=== PATIENT | male | born 1950 | race Caucasian/White ===

== ENCOUNTER 2017-09-11 13:57 | Emergency (ER) | payer MEDICARE ==
[~2017-09-11] VITALS: Ht 190.5 cm; Wt 95.5 kg
[~2017-09-11 13:57] MED LIST: CYCL-259 PO; CYCL5TAB PO; DULO20CA45 PO; LISI-170 PO; OMEP40CA6 PO; OXYC1TAB7 PO; SIMV5TAB5 PO; TRAM50TA2 PO
[2017-09-11] MEDS ORDERED: DEXAMETHASONE 4 MG/ML, 1ML IVPush ONE (14:30)
[2017-09-11] MEDS ORDERED: ONDANSETRON ODT 4 MG PO ONE (14:30)
[2017-09-11] MEDS ORDERED: MORPHINE SULFATE 4 MG/ML, 1ML IVPush ONE (14:30)
[2017-09-11] MEDS ORDERED: DEXAMETHASONE 4 MG/ML, 5ML ONE (14:39)
[2017-09-11] MEDS ORDERED: ONDANSETRON ODT 4 MG ONE (14:39)
[2017-09-11] MEDS ORDERED: MORPHINE SULFATE 4 MG/ML, 1ML ONE (14:39)
[2017-09-11 16:32] VITALS: BP 131/60
== END 2017-09-11 16:35 | disposition home or self-care (01) ==
LOC: ED 16:29
DX: M51.36 Other intervertebral disc degeneration, lumbar region (principal); G89.29 Other chronic pain; M54.5 Low back pain
CPT/HCPCS: 96374; 96375; 99284; J1100; Q0162

== ENCOUNTER 2018-02-23 06:13 | Emergency (ER) | payer OTHER ==
[~2018-02-23] VITALS: Ht 188 cm; Wt 90.0 kg
[2018-02-23] MEDS ORDERED: LORazepam 1MG TABLET PO ONE (06:30)
[2018-02-23] MEDS ORDERED: ATOR40TA78 PO (06:31)
[2018-02-23] MEDS ORDERED: LISI-170 PO (06:31)
[2018-02-23] MEDS ORDERED: ACET325T14 PO (06:32)
[2018-02-23] MEDS ORDERED: TRAM50TA2 PO (06:33)
[2018-02-23] MEDS ORDERED: LORazepam 1MG TABLET ONE (06:37)
[2018-02-23 06:45] LABS: BASOPHILS # (AUTO) 0.02 x10^3/uL (0-0.1); BASOPHILS % (AUTO) 0 % (0-1); EOSINOPHILS # (AUTO) 0.08 x10^3/uL (0-0.4); EOSINOPHILS % (AUTO) 1 % (1-7); LYMPHOCYTES # (AUTO) 1.04 x10^3/uL (1-3.4); LYMPHOCYTES % (AUTO) 14 % (22-44); MD NO; MEAN CORPUSCULAR HEMOGLOBIN 29.2 pg (27.5-34.5); MEAN CORPUSCULAR HGB CONC 33.4 g/dL (33.2-36.2); MEAN CORPUSCULAR VOLUME 87.4 fL (81-97); MEAN PLATELET VOLUME 7.9 fL (7.4-10.4); MONOCYTES # (AUTO) 0.54 x10^3/uL (0.2-0.8); MONOCYTES % (AUTO) 7 % (2-9); NEUTROPHILS # (AUTO) 5.67 x10^3/uL (1.8-6.8); NEUTROPHILS % (AUTO) 77 % (42-75); PLATELET COUNT 340 x10^3/uL (130-400); RED BLOOD COUNT 4.71 x10^6/uL (4.38-5.82); RED CELL DISTRIBUTION WIDTH 14.6 % (9.4-14.8)
[2018-02-23 06:56] LABS: ALBUMIN 3.6 g/dL (3.4-5.0); ANION GAP 10 mmol/L (5-15); CALCIUM 9.1 mg/dL (8.5-10.1); CHLORIDE 113 mmol/L (98-107); CREATININE 1.65 mg/dL (0.7-1.3)
[2018-02-23 07:00] LABS: TROPONIN I < 0.015 ng/mL (0.000-0.045)
[2018-02-23] MEDS ORDERED: ONDANSETRON ODT 4 MG PO ONE (08:00)
[2018-02-23] MEDS ORDERED: ONDANSETRON ODT 4 MG ONE (08:05)
[2018-02-23 09:10] VITALS: BP 123/67
== END 2018-02-23 09:12 | disposition home or self-care (01) ==
LOC: ED 08:10
DX: R42 Dizziness and giddiness (principal); R06.4 Hyperventilation; F41.1 Generalized anxiety disorder; I10 Essential (primary) hypertension; E78.5 Hyperlipidemia, unspecified; K21.9 Gastro-esophageal reflux disease without esophagitis; G89.29 Other chronic pain; Z87.891 Personal history of nicotine dependence
CPT/HCPCS: 36415; 71045; 80048; 82040; 84484; 85025; 93005; 99284; Q0162

== ENCOUNTER 2020-08-05 09:53 | Emergency (ER) | payer MEDICARE, OTHER ==
[~2020-08-05] VITALS: Ht 188 cm; Wt 85.9 kg
[~2020-08-05 09:53] MED LIST changes: +ACET325T14 PO; +ATOR40TA78 PO; -CYCL-259 PO; +CYCL10TA2 PO; +OMEP40CA42 PO; -OMEP40CA6 PO; +SIMV5TAB14 PO; -SIMV5TAB5 PO
[2020-08-05] MEDS ORDERED: FAMOTIDINE 20 MG TABLET PO ONE (10:30)
[2020-08-05] MEDS ORDERED: DIPHENHYDRAMINE 50 MG/ML, 1ML IM ONE (10:30)
[2020-08-05] MEDS ORDERED: FAMOTIDINE 20 MG TABLET ONE (10:45)
[2020-08-05] MEDS ORDERED: DIPHENHYDRAMINE 50 MG/ML, 1ML ONE (10:46)
[2020-08-05 10:53] LABS: BASOPHILS % (AUTO) 1 % (0-1); EOSINOPHILS % (AUTO) 17 % (1-7); LYMPHOCYTES % (AUTO) 10 % (22-44); MEAN PLATELET VOLUME 7.2 fL (7.4-10.4); MONOCYTES % (AUTO) 12 % (2-9); NEUTROPHILS % (AUTO) 62 % (42-75); PLATELET COUNT 382 x10^3/uL (130-400); RED BLOOD COUNT 4.19 x10^6/uL (4.38-5.82)
[2020-08-05 11:03] LABS: ALBUMIN 3.4 g/dL (3.4-5.0); ANION GAP 5 mmol/L (5-15); CALCIUM 9.3 mg/dL (8.5-10.1); CHLORIDE 107 mmol/L (98-107)
[2020-08-05 11:07] LABS: ALANINE AMINOTRANSFERASE 24 U/L (12-78); ALKALINE PHOSPHATASE 88 U/L (45-117); BILIRUBIN,TOTAL 0.4 mg/dL (0.2-1.0); CREATININE 1.41 mg/dL (0.7-1.3)
[2020-08-05 11:12] LABS: MD NO
[2020-08-05 12:22] VITALS: BP 121/81
== END 2020-08-05 12:24 | disposition home or self-care (01) ==
LOC: ED 10:25
DX: L20.9 Atopic dermatitis, unspecified (principal); L20.84 Intrinsic (allergic) eczema; I10 Essential (primary) hypertension; E78.5 Hyperlipidemia, unspecified; K21.9 Gastro-esophageal reflux disease without esophagitis
CPT/HCPCS: 36415; 80053; 85025; 96372; 99283; J1200; J7512

== ENCOUNTER 2020-10-23 05:21 | Inpatient (IN) | payer OTHER ==
[~2020-10-23] VITALS: Ht 188 cm; Wt 82.8 kg
[~2020-10-23 05:21] MED LIST changes: -OMEP40CA42 PO; +OMEP40CA8 PO
[2020-10-23] MEDS ORDERED: TRIAMCINOLONE CRM 0.1%, 15GM TP ONE (06:00)
[2020-10-23] MEDS ORDERED: VANCOMYCIN PER PHARMACY MC PRN (06:00)
[2020-10-23] MEDS ORDERED: AMPICILLIN/SULBACTAM 3 GM in SODIUM CHLORIDE 0.9% 100 ML IV ONE (06:00)
[2020-10-23] MEDS ORDERED: VANCOMYCIN 2,100 MG in SODIUM CHLORIDE 0.9% 500 ML IV ONE (06:00)
[2020-10-23] MEDS ORDERED: DIPHENHYDRAMINE 50 MG/ML, 1ML IVPush ONE (06:00)
[2020-10-23] MEDS ORDERED: DIPHENHYDRAMINE 50 MG/ML, 1ML ONE (06:10)
[2020-10-23] MEDS ORDERED: HYDROcodone/APAP 5/325 TABLET ONE (06:12)
[2020-10-23 06:24] LABS: BASOPHILS % (AUTO) 0 % (0-1); EOSINOPHILS % (AUTO) 9 % (1-7); LYMPHOCYTES % (AUTO) 4 % (22-44); MEAN CORPUSCULAR HEMOGLOBIN 28.5 pg (27.5-34.5); MEAN CORPUSCULAR HGB CONC 33.3 g/dL (33.2-36.2); MEAN PLATELET VOLUME 7.2 fL (7.4-10.4); MONOCYTES % (AUTO) 7 % (2-9); NEUTROPHILS % (AUTO) 80 % (42-75); PLATELET COUNT 579 x10^3/uL (130-400); RED BLOOD COUNT 4.76 x10^6/uL (4.38-5.82); RED CELL DISTRIBUTION WIDTH 15.2 % (9.4-14.8)
[2020-10-23] MEDS ORDERED: HYDROcodone/APAP 5/325 TABLET PO ONE (06:30)
[2020-10-23 06:34] LABS: ALANINE AMINOTRANSFERASE 26 U/L (12-78); ALBUMIN 2.9 g/dL (3.4-5.0); ANION GAP 9 mmol/L (5-15); CALCIUM 8.5 mg/dL (8.5-10.1); CHLORIDE 107 mmol/L (98-107); CREATININE 1.52 mg/dL (0.7-1.3)
[2020-10-23 06:36] LABS: ALKALINE PHOSPHATASE 115 U/L (45-117); BILIRUBIN,TOTAL 0.3 mg/dL (0.2-1.0); TOTAL PROTEIN 6.9 g/dL (6.4-8.2)
--- NOTE | 2020-10-23 06:42 | NUR ---
Note undone in EDM - 10/23/20 at 0642 by VIVIANA Pt brought in by EMS from home due to worsening skin infection/irriation, itchiness, hives, burning sensation all throughout body. States feels like skin is on fire. Was seen at [facility] x2 weeks ago and was dx w/ an unspecified skin infection. Was d/c on Benadryl and an unknown ABX. Pt alert and orientedx4, GCS 15, pleasant. Denies sob. Pt visibly uncomfortably. Diffuse Utricaria and hives throughout skin. Pt endorses bilateral LE edema/weeping that has been acute on chronic x6 months. Denies hx of CHF, [place], CVA, or DM.
--- NOTE | 2020-10-23 06:42 | NUR ---
Pt brought in by EMS from home due to worsening skin infection/irriation, itchiness, hives, burning sensation all throughout body. States feels like skin is on fire. Was seen at [facility] x[facility] weeks ago and was dx w/ an unspecified skin infection. Was d/c on Benadryl and an unknown ABX. Pt alert and orientedx4, GCS 15, pleasant. Denies sob. Pt visibly uncomfortably. Diffuse Utricaria and hives throughout skin. Pt endorses bilateral LE edema/weeping that has been acute on chronic x6 months. Denies hx of CHF, ID, CVA, or DM.
--- NOTE | 2020-10-23 06:47 | NUR ---
Report given to Bailee Lyn no further questions at this time.
--- NOTE | 2020-10-23 07:03 | NUR ---
Pt drowsy, sleeping intermittently. "Whaterver you gave me, starting to work, better than when I first got here, that's for sure."
[2020-10-23 08:15] VITALS: BP 153/76
[2020-10-23] MEDS ORDERED: ACETAMINOPHEN 325 MG TABLET PO PRN (09:00)
[2020-10-23] MEDS ORDERED: POLYETHYLENE GLYCOL 17 GM PACKET PO PRN (09:00)
[2020-10-23] MEDS ORDERED: FAMOTIDINE 20 MG/2 ML IVPush SCH (09:00)
[2020-10-23] MEDS: LACTATED RINGERS 1,000 ML IV SCH ×3 (09:18→23:58)
[2020-10-23] MEDS: SENNA/DOCUSATE TABLET PO SCH (10:34)
[2020-10-23] MEDS: methylPREDNISolone SOD SUCC 40 MG/ML IV SCH (10:34)
[2020-10-23] MEDS: ENOXAPARIN 40 MG/0.4 ML SQ SCH (10:35)
[2020-10-23 12:53] LABS: HCT (SEDRATE) 40.8 % (39.2-51.8)
[2020-10-23] MEDS: AMPICILLIN/SULBACTAM 3 GM in SODIUM CHLORIDE 0.9% 100 ML IV SCH ×3 (13:06→23:57)
[2020-10-23] MEDS: DIPHENHYDRAMINE 50 MG/ML, 1ML IVPush SCH ×3 (13:06→23:57)
[2020-10-23 13:17] VITALS: BP 147/66
[2020-10-23] MEDS: OXYcodone/APAP 5/325MG TABLET PO PRN ×2 (14:06→21:05)
[2020-10-23 19:59] VITALS: BP 145/70
[2020-10-23] MEDS: FAMOTIDINE 20 MG TABLET PO SCH (21:01)
[2020-10-24 03:13] VITALS: BP 134/60
[2020-10-24 05:07] LABS: BASOPHILS % (AUTO) 0 % (0-1); EOSINOPHILS % (AUTO) 2 % (1-7); LYMPHOCYTES % (AUTO) 8 % (22-44); MEAN CORPUSCULAR HEMOGLOBIN 28.7 pg (27.5-34.5); MEAN CORPUSCULAR HGB CONC 33.4 g/dL (33.2-36.2); MONOCYTES % (AUTO) 10 % (2-9); NEUTROPHILS % (AUTO) 80 % (42-75); PLATELET COUNT 488 x10^3/uL (130-400); RED BLOOD COUNT 3.88 x10^6/uL (4.38-5.82); RED CELL DISTRIBUTION WIDTH 15.5 % (9.4-14.8)
[2020-10-24 05:16] LABS: CHLORIDE 114 mmol/L (98-107)
[2020-10-24 05:25] LABS: ALANINE AMINOTRANSFERASE 17 U/L (12-78); ALBUMIN 2.1 g/dL (3.4-5.0); ALKALINE PHOSPHATASE 91 U/L (45-117); ANION GAP 8 mmol/L (5-15); BILIRUBIN,TOTAL 0.4 mg/dL (0.2-1.0); CALCIUM 8.1 mg/dL (8.5-10.1); CREATININE 1.28 mg/dL (0.7-1.3); TOTAL PROTEIN 5.4 g/dL (6.4-8.2)
[2020-10-24] MEDS: AMPICILLIN/SULBACTAM 3 GM in SODIUM CHLORIDE 0.9% 100 ML IV SCH ×5 (06:40→22:23)
[2020-10-24] MEDS: DIPHENHYDRAMINE 50 MG/ML, 1ML IVPush SCH ×3 (06:41→17:58)
[2020-10-24] MEDS: OXYcodone/APAP 5/325MG TABLET PO PRN ×4 (06:41→22:24)
[2020-10-24 06:54] VITALS: BP 152/67
[2020-10-24] MEDS: MINERA CRM, 60GM TP SCH ×3 (09:30→22:25)
[2020-10-24] MEDS: FAMOTIDINE 20 MG TABLET PO SCH ×2 (09:35→22:24)
[2020-10-24] MEDS: SENNA/DOCUSATE TABLET PO SCH (09:35)
[2020-10-24] MEDS: methylPREDNISolone SOD SUCC 40 MG/ML IV SCH (09:36)
[2020-10-24] MEDS: ENOXAPARIN 40 MG/0.4 ML SQ SCH (09:36)
[2020-10-24] MEDS: LACTATED RINGERS 1,000 ML IV SCH (12:04)
[2020-10-24] MEDS ORDERED: VANCOMYCIN PER PHARMACY MC PRN (12:30)
[2020-10-24 12:50] VITALS: BP 148/76
[2020-10-24] MEDS ORDERED: PHARMACOKINETIC MONITORING MC PRN (13:00)
[2020-10-24] MEDS ORDERED: VANCOMYCIN 2,200 MG in SODIUM CHLORIDE 0.9% 500 ML IV ONE (13:00)
[2020-10-24] MEDS ORDERED: GABA-827 PO (15:39)
[2020-10-24] MEDS: GABAPENTIN 400 MG CAPSULE PO SCH ×2 (17:36→22:24)
[2020-10-24 18:55] VITALS: BP 154/70
[2020-10-25 01:03] VITALS: BP 136/86
[2020-10-25] MEDS: DIPHENHYDRAMINE 25 MG CAPSULE PO SCH ×5 (01:06→20:58)
[2020-10-25] MEDS: AMPICILLIN/SULBACTAM 3 GM in SODIUM CHLORIDE 0.9% 100 ML IV SCH ×2 (01:49→07:32)
[2020-10-25 05:24] LABS: ANION GAP 8 mmol/L (5-15); CALCIUM 7.9 mg/dL (8.5-10.1); CHLORIDE 112 mmol/L (98-107); CREATININE 1.49 mg/dL (0.7-1.3)
[2020-10-25] MEDS: DIPHENHYDRAMINE 50 MG/ML, 1ML IVPush SCH ×4 (07:00→20:58)
[2020-10-25 07:29] VITALS: BP 136/64
[2020-10-25] MEDS: SENNA/DOCUSATE TABLET PO SCH (07:33)
[2020-10-25] MEDS: ENOXAPARIN 40 MG/0.4 ML SQ SCH (07:33)
[2020-10-25] MEDS: GABAPENTIN 400 MG CAPSULE PO SCH ×2 (07:33→20:58)
[2020-10-25] MEDS: OXYcodone/APAP 5/325MG TABLET PO PRN ×4 (07:33→22:02)
[2020-10-25] MEDS: FAMOTIDINE 20 MG TABLET PO SCH ×2 (07:34→20:58)
[2020-10-25] MEDS: MINERA CRM, 60GM TP SCH ×3 (07:34→22:09)
[2020-10-25] MEDS ORDERED: VANCOMYCIN 1,800 MG in SODIUM CHLORIDE 0.9% 250 ML IV SCH (08:00)
[2020-10-25 14:45] VITALS: BP 155/72
[2020-10-25] MEDS: CEFAZOLIN PMX 2GM/50ML 50 ML IVPB SCH (17:00)
[2020-10-25 19:36] VITALS: BP 149/67
[2020-10-26] MEDS: CEFAZOLIN PMX 2GM/50ML 50 ML IVPB SCH ×3 (00:48→15:53)
[2020-10-26 02:14] VITALS: BP 155/68
[2020-10-26] MEDS: DIPHENHYDRAMINE 25 MG CAPSULE PO SCH ×4 (05:17→22:00)
[2020-10-26] MEDS: OXYcodone/APAP 5/325MG TABLET PO PRN ×3 (05:17→22:00)
[2020-10-26 06:04] LABS: BASOPHILS % (AUTO) 1 % (0-1); EOSINOPHILS % (AUTO) 5 % (1-7); LYMPHOCYTES % (AUTO) 11 % (22-44); MEAN CORPUSCULAR HEMOGLOBIN 28.3 pg (27.5-34.5); MEAN CORPUSCULAR HGB CONC 32.6 g/dL (33.2-36.2); MEAN PLATELET VOLUME 7.3 fL (7.4-10.4); MONOCYTES % (AUTO) 12 % (2-9); NEUTROPHILS % (AUTO) 72 % (42-75); PLATELET COUNT 461 x10^3/uL (130-400); RED BLOOD COUNT 3.82 x10^6/uL (4.38-5.82); RED CELL DISTRIBUTION WIDTH 15.8 % (9.4-14.8)
[2020-10-26 06:25] LABS: ANION GAP 5 mmol/L (5-15); CALCIUM 8.2 mg/dL (8.5-10.1); CHLORIDE 111 mmol/L (98-107); CREATININE 1.18 mg/dL (0.7-1.3)
[2020-10-26 07:15] VITALS: BP 159/72
[2020-10-26] MEDS: SENNA/DOCUSATE TABLET PO SCH (08:30)
[2020-10-26] MEDS: FAMOTIDINE 20 MG TABLET PO SCH ×2 (08:30→22:00)
[2020-10-26] MEDS: ENOXAPARIN 40 MG/0.4 ML SQ SCH (08:31)
[2020-10-26] MEDS: GABAPENTIN 400 MG CAPSULE PO SCH ×2 (08:31→22:00)
[2020-10-26] MEDS: MINERA CRM, 60GM TP SCH ×3 (08:32→22:00)
[2020-10-26 15:20] VITALS: BP 160/72
[2020-10-26 20:53] VITALS: BP 153/73
[2020-10-27] MEDS: CEFAZOLIN PMX 2GM/50ML 50 ML IVPB SCH ×3 (00:44→16:08)
[2020-10-27] MEDS: OXYcodone/APAP 5/325MG TABLET PO PRN ×3 (01:57→19:57)
[2020-10-27 02:21] VITALS: BP 157/64
[2020-10-27 06:02] LABS: BASOPHILS % (AUTO) 0 % (0-1); EOSINOPHILS % (AUTO) 4 % (1-7); LYMPHOCYTES % (AUTO) 11 % (22-44); MEAN CORPUSCULAR HEMOGLOBIN 27.7 pg (27.5-34.5); MEAN CORPUSCULAR HGB CONC 32.1 g/dL (33.2-36.2); MEAN PLATELET VOLUME 7.4 fL (7.4-10.4); MONOCYTES % (AUTO) 11 % (2-9); NEUTROPHILS % (AUTO) 74 % (42-75); PLATELET COUNT 549 x10^3/uL (130-400); RED BLOOD COUNT 4.31 x10^6/uL (4.38-5.82); RED CELL DISTRIBUTION WIDTH 16.3 % (9.4-14.8)
[2020-10-27] MEDS: DIPHENHYDRAMINE 25 MG CAPSULE PO SCH ×4 (06:03→20:49)
[2020-10-27 06:11] LABS: ANION GAP 8 mmol/L (5-15); CALCIUM 8.2 mg/dL (8.5-10.1); CHLORIDE 108 mmol/L (98-107); CREATININE 1.44 mg/dL (0.7-1.3)
[2020-10-27 07:26] VITALS: BP 165/72
[2020-10-27] MEDS: FAMOTIDINE 20 MG TABLET PO SCH ×2 (08:25→19:57)
[2020-10-27] MEDS: GABAPENTIN 400 MG CAPSULE PO SCH ×2 (08:25→19:57)
[2020-10-27] MEDS: SENNA/DOCUSATE TABLET PO SCH (08:25)
[2020-10-27] MEDS: ENOXAPARIN 40 MG/0.4 ML SQ SCH (08:25)
[2020-10-27] MEDS: MINERA CRM, 60GM TP SCH ×3 (08:25→20:49)
[2020-10-27 13:38] VITALS: BP 139/69
[2020-10-27 19:54] VITALS: BP 160/72
[2020-10-28] MEDS: CEFAZOLIN PMX 2GM/50ML 50 ML IVPB SCH ×3 (00:46→17:02)
[2020-10-28] MEDS: OXYcodone/APAP 5/325MG TABLET PO PRN ×4 (00:53→20:45)
[2020-10-28 01:58] VITALS: BP 136/53
[2020-10-28 05:48] LABS: BASOPHILS % (AUTO) 1 % (0-1); EOSINOPHILS % (AUTO) 6 % (1-7); LYMPHOCYTES % (AUTO) 14 % (22-44); MEAN CORPUSCULAR HEMOGLOBIN 28.4 pg (27.5-34.5); MEAN CORPUSCULAR HGB CONC 32.9 g/dL (33.2-36.2); MEAN PLATELET VOLUME 7.1 fL (7.4-10.4); MONOCYTES % (AUTO) 10 % (2-9); NEUTROPHILS % (AUTO) 69 % (42-75); PLATELET COUNT 522 x10^3/uL (130-400); RED BLOOD COUNT 4.14 x10^6/uL (4.38-5.82); RED CELL DISTRIBUTION WIDTH 16.4 % (9.4-14.8)
[2020-10-28 05:53] LABS: ANION GAP 10 mmol/L (5-15); CHLORIDE 109 mmol/L (98-107)
[2020-10-28 05:58] LABS: CALCIUM 8.4 mg/dL (8.5-10.1); CREATININE 1.34 mg/dL (0.7-1.3)
[2020-10-28] MEDS: DIPHENHYDRAMINE 25 MG CAPSULE PO SCH ×4 (06:15→20:45)
[2020-10-28 06:16] VITALS: BP 147/69
[2020-10-28] MEDS: SENNA/DOCUSATE TABLET PO SCH (08:17)
[2020-10-28] MEDS: FAMOTIDINE 20 MG TABLET PO SCH ×2 (08:18→20:45)
[2020-10-28] MEDS: GABAPENTIN 400 MG CAPSULE PO SCH ×2 (08:18→20:45)
[2020-10-28] MEDS: ENOXAPARIN 40 MG/0.4 ML SQ SCH (08:19)
[2020-10-28] MEDS: MINERA CRM, 60GM TP SCH ×3 (08:31→20:46)
[2020-10-28] MEDS ORDERED: ACETAMINOPHEN 325 MG TABLET PO PRN (10:00)
[2020-10-28] MEDS: CARVEDILOL 6.25 MG TABLET PO SCH ×2 (10:41→17:03)
[2020-10-28 10:45] VITALS: BP 165/75
[2020-10-28 15:20] VITALS: BP 164/75
[2020-10-28] MEDS: LACTOBACILLUS CHEW TABLET PO SCH ×2 (17:03→20:45)
[2020-10-28 20:35] VITALS: BP 132/68
[2020-10-29] MEDS: CEFAZOLIN PMX 2GM/50ML 50 ML IVPB SCH ×2 (00:34→09:01)
[2020-10-29 03:16] VITALS: BP 124/71
[2020-10-29] MEDS: OXYcodone/APAP 5/325MG TABLET PO PRN ×4 (03:37→18:39)
[2020-10-29] MEDS: CARVEDILOL 6.25 MG TABLET PO SCH ×2 (05:20→18:15)
[2020-10-29] MEDS: DIPHENHYDRAMINE 25 MG CAPSULE PO SCH ×4 (05:20→21:49)
[2020-10-29 05:32] LABS: HCT (SEDRATE) 36.3 % (39.2-51.8)
[2020-10-29 05:40] LABS: BASOPHILS % (AUTO) 0 % (0-1); EOSINOPHILS % (AUTO) 14 % (1-7); LYMPHOCYTES % (AUTO) 7 % (22-44); MEAN CORPUSCULAR HEMOGLOBIN 28.8 pg (27.5-34.5); MEAN CORPUSCULAR HGB CONC 33.3 g/dL (33.2-36.2); MEAN PLATELET VOLUME 7.4 fL (7.4-10.4); MONOCYTES % (AUTO) 7 % (2-9); NEUTROPHILS % (AUTO) 73 % (42-75); PLATELET COUNT 456 x10^3/uL (130-400); RED BLOOD COUNT 4.22 x10^6/uL (4.38-5.82); RED CELL DISTRIBUTION WIDTH 16.2 % (9.4-14.8)
[2020-10-29 05:46] LABS: CHLORIDE 106 mmol/L (98-107)
[2020-10-29 06:00] LABS: ALANINE AMINOTRANSFERASE 13 U/L (12-78); ALBUMIN 2.2 g/dL (3.4-5.0); ALKALINE PHOSPHATASE 93 U/L (45-117); ANION GAP 8 mmol/L (5-15); BILIRUBIN,TOTAL 0.5 mg/dL (0.2-1.0); CALCIUM 7.9 mg/dL (8.5-10.1); CREATININE 1.14 mg/dL (0.7-1.3); TOTAL PROTEIN 5.6 g/dL (6.4-8.2)
[2020-10-29 07:37] VITALS: BP 121/60
[2020-10-29] MEDS: SENNA/DOCUSATE TABLET PO SCH (09:00)
[2020-10-29] MEDS: HEPARIN 5,000 UNITS/ML, 1ML SQ SCH ×3 (09:01→23:53)
[2020-10-29] MEDS: FAMOTIDINE 20 MG TABLET PO SCH ×2 (09:01→21:49)
[2020-10-29] MEDS: GABAPENTIN 400 MG CAPSULE PO SCH ×2 (09:02→21:49)
[2020-10-29] MEDS: MINERA CRM, 60GM TP SCH ×3 (09:03→21:50)
[2020-10-29] MEDS: LACTOBACILLUS CHEW TABLET PO SCH ×3 (09:03→21:49)
[2020-10-29] MEDS ORDERED: FAMO20TA7 PO (12:55)
[2020-10-29] MEDS ORDERED: DIPH25CA26 PO (12:55)
[2020-10-29] MEDS ORDERED: CARV6.2512 PO (12:55)
[2020-10-29] MEDS ORDERED: SENN-211 PO (12:55)
[2020-10-29] MEDS ORDERED: ACID1TAB7 PO (12:55)
[2020-10-29] MEDS ORDERED: DAPTOMYCIN 350 MG in SODIUM CHLORIDE 0.9% 100 ML IV SCH (13:30)
[2020-10-29 14:17] VITALS: BP 132/77
[2020-10-29] MEDS: DAPTOMYCIN 450 MG in SODIUM CHLORIDE 0.9% 100 ML IV SCH (14:45)
[2020-10-29] MEDS ORDERED: HYDR25CA94 PO (15:28)
[2020-10-29 18:12] VITALS: BP 123/71
[2020-10-29 20:57] VITALS: BP 121/62
[2020-10-30 01:36] VITALS: BP 128/62
[2020-10-30] MEDS: OXYcodone/APAP 5/325MG TABLET PO PRN ×2 (04:44→11:49)
[2020-10-30] MEDS: CARVEDILOL 6.25 MG TABLET PO SCH (04:47)
[2020-10-30] MEDS: DIPHENHYDRAMINE 25 MG CAPSULE PO SCH ×2 (04:47→11:20)
[2020-10-30 06:38] VITALS: BP 113/60
[2020-10-30] MEDS: LACTOBACILLUS CHEW TABLET PO SCH (08:22)
[2020-10-30] MEDS: HEPARIN 5,000 UNITS/ML, 1ML SQ SCH (08:23)
[2020-10-30] MEDS: FAMOTIDINE 20 MG TABLET PO SCH (08:23)
[2020-10-30] MEDS: GABAPENTIN 400 MG CAPSULE PO SCH (08:23)
[2020-10-30] MEDS: MINERA CRM, 60GM TP SCH ×2 (08:23→16:22)
[2020-10-30] MEDS: SENNA/DOCUSATE TABLET PO SCH (08:25)
[2020-10-30 13:13] LABS: BASOPHILS % (AUTO) 1 % (0-1); EOSINOPHILS % (AUTO) 19 % (1-7); LYMPHOCYTES % (AUTO) 9 % (22-44); MEAN CORPUSCULAR HEMOGLOBIN 28.6 pg (27.5-34.5); MEAN CORPUSCULAR HGB CONC 33.2 g/dL (33.2-36.2); MEAN PLATELET VOLUME 7.4 fL (7.4-10.4); MONOCYTES % (AUTO) 8 % (2-9); NEUTROPHILS % (AUTO) 65 % (42-75); PLATELET COUNT 572 x10^3/uL (130-400); RED BLOOD COUNT 4.53 x10^6/uL (4.38-5.82); RED CELL DISTRIBUTION WIDTH 16.4 % (9.4-14.8)
[2020-10-30 13:37] VITALS: BP 131/76
[2020-10-30] MEDS: DAPTOMYCIN 450 MG in SODIUM CHLORIDE 0.9% 100 ML IV SCH (14:59)
[2020-10-30 15:19] VITALS: BP 132/73
== END 2020-10-30 16:31 | disposition home or self-care (01) | DRG 606 ==
LOC: ED 05:39 → EDIP 07:26 → 4NE 08:23
PROVIDERS: ADMIT Family Medicine; ATTEND Internal Medicine
PROC: 02HV33Z Insertion of Infusion Device into Superior Vena Cava, Percutaneous Approach (ICD-10-PCS; principal; 2020-10-28)
PROC: B5181ZA Fluoroscopy of Superior Vena Cava using Low Osmolar Contrast, Guidance (ICD-10-PCS; 2020-10-28)
PROC: B548ZZA Ultrasonography of Superior Vena Cava, Guidance (ICD-10-PCS; 2020-10-28)
DX: L23.7 Allergic contact dermatitis due to plants, except food (principal); N17.0 Acute kidney failure with tubular necrosis; L03.116 Cellulitis of left lower limb; E87.1 Hypo-osmolality and hyponatremia; I50.30 Unspecified diastolic (congestive) heart failure; I13.0 Hypertensive heart and chronic kidney disease with heart failure and stage 1 through stage 4 chronic kidney disease, or unspecified chronic kidney disease; L03.115 Cellulitis of right lower limb; N18.30 Chronic kidney disease, stage 3 unspecified; I89.0 Lymphedema, not elsewhere classified; L29.9 Pruritus, unspecified; D72.10 Eosinophilia, unspecified; F41.1 Generalized anxiety disorder; E83.51 Hypocalcemia; E78.5 Hyperlipidemia, unspecified; E86.0 Dehydration; F17.200 Nicotine dependence, unspecified, uncomplicated; G89.29 Other chronic pain; T14.8XXA Other injury of unspecified body region, initial encounter; X58.XXXA Exposure to other specified factors, initial encounter; K21.9 Gastro-esophageal reflux disease without esophagitis; M54.12 Radiculopathy, cervical region; Z82.49 Family history of ischemic heart disease and other diseases of the circulatory system; Y93.89 Activity, other specified; Y92.89 Other specified places as the place of occurrence of the external cause; Y99.8 Other external cause status
CPT/HCPCS: 36415; 36573; 71045; 76700; 80048; 80053; 82330; 83605; 83735; 84145; 85025; 85651; 86140; 87040; 87077; 87147; 87181; 87186; 93306; 93970; 96365; 96375; G0378; J0295; J0690; J0878; J1644; J1650; J3370; C1751; J1200; J2920; J7040; J7050; J7120; J7512; Q0163

== ENCOUNTER 2020-11-15 23:14 | Emergency (ER) | payer OTHER ==
[~2020-11-15] VITALS: Ht 188 cm; Wt 76.0 kg
[~2020-11-15 23:14] MED LIST changes: +ACID1TAB7 PO; +CARV6.2512 PO; +DIPH25CA26 PO; +FAMO20TA7 PO; +GABA-827 PO; +HYDR25CA94 PO; +SENN-211 PO
[2020-11-15 23:21] VITALS: BP 127/61
--- NOTE | 2020-11-15 23:49 | NUR ---
Monisha lamb in EDM - 11/15/20 at 2350 by TORI PT SEEN BY PA, AND MEDS AND INFORMATION GIVEN TO PT, AND HE V/U. F/U AND D/C INSTRUCTIONS AND PRESCRIPTIONS GIVEN TO PT AND HE V/U. PT AMBULATED OUT OF THE ER.
== END 2020-11-15 23:52 | disposition home or self-care (01) ==
LOC: ED 23:30
DX: S60.562A Insect bite (nonvenomous) of left hand, initial encounter (principal); S60.561A Insect bite (nonvenomous) of right hand, initial encounter; K21.9 Gastro-esophageal reflux disease without esophagitis; E78.5 Hyperlipidemia, unspecified; I10 Essential (primary) hypertension; W57.XXXA Bitten or stung by nonvenomous insect and other nonvenomous arthropods, initial encounter; Y93.89 Activity, other specified; Y92.89 Other specified places as the place of occurrence of the external cause; Y99.8 Other external cause status
CPT/HCPCS: 99281